=== PATIENT | male | born 1990 ===

== ENCOUNTER 2017-02-04 13:29 | Emergency (ER) | payer OTHER ==
[2017-02-04 13:37] VITALS: BP 130/88; PULSE 57; TEMP 98.2; BMI 24.3
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
[2017-02-04 14:52] LABS: URINE APPEARANCE CLEAR; URINE BILIRUBIN NEGATIVE (NEGATIVE); URINE COLOR YELLOW; URINE GLUCOSE (UA) NEGATIVE (NEGATIVE); URINE KETONE NEGATIVE (NEGATIVE)
[2017-02-04 14:53] LABS: URINE BLOOD NEGATIVE (NEGATIVE); URINE LEUK ESTERASE 1+ (NEGATIVE); URINE NITRITE NEGATIVE (NEGATIVE); URINE PROTEIN NEGATIVE (NEGATIVE); URINE UROBILINOGEN 0.2 E.U/dl (0.2-1.0)
[2017-02-04 15:41] LABS: URINE RBC 0-3 /hpf (0-3); URINE WBC 20-30 (3-5)
[2017-02-04 17:45] LABS: HIV 1 & 2 AB NEGATIVE; HIV 1 AGp24 NEGATIVE
== END 2017-02-04 16:05 | disposition home or self-care (01) ==
LOC: FER 13:29
DX: N48.89 Other specified disorders of penis (principal); N39.0 Urinary tract infection, site not specified; J45.909 Unspecified asthma, uncomplicated
CPT/HCPCS: 36415; 81003; 81015; 87389; 87491; 87591; 99283-25